=== PATIENT | female | born 1990 | race African-American/Black ===

== ENCOUNTER 2020-01-29 10:24 | Emergency (ER) | payer SELFPAY ==
[~2020-01-29] VITALS: Ht 162.6 cm; Wt 95.0 kg
[2020-01-29 11:03] LABS: U PREG PATIENT NEGATIVE (NEG)
[2020-01-29 11:11] LABS: BILIRUBIN,URINE NEGATIVE (NEG); CLARITY,URINE HAZY; COLOR,URINE YELLOW
[2020-01-29 11:12] LABS: BACTERIA,URINE MANY /HPF (0-FEW); NITRITE,URINE NEGATIVE (NEG); PROTEIN,URINE 30 mg/dL (NEG-TRACE); SQUAMOUS EPITHELIAL CELL,UR MOD /LPF; UROBILINOGEN,URINE 0.2 mg/dL (0.2 mg/dL)
[2020-01-29] MEDS ORDERED: PHENAZOPYRIDINE 200 MG TABLET. PO ONE (11:15)
[2020-01-29] MEDS ORDERED: cefTRIAXone IM 250 MG VIAL IM ONE (11:30)
[2020-01-29] MEDS ORDERED: AZIT500T PO (11:31)
[2020-01-29] MEDS ORDERED: METR500T PO (11:31)
[2020-01-29 11:51] VITALS: BP 124/87
--- NOTE | 2020-01-29 12:16 | PHYS DOC ---
Past Medical History Past Medical History: Asthma Past Surgical History: No Surgical History Smoking Status: Current Every Day Smoker Alcohol Use: Occasionally General Adult EDM: Chief Complaint: VAGINAL PROBLEM HPI: HPI: 29-year-old female presents with a chief complaint of dysuria urinary urgency and vaginal discharge. Patient states symptoms have been ongoing x2 days. Patient admits to having unprotected sex on Monday. Patient states she has previously had trichomonas. Patient states she has pain at the end of urination. Review of Systems: Review of Systems: Constitutional: Denies fever or chills. [] Eyes: Denies change in visual acuity. [] HENT: Denies nasal congestion or sore throat. [] Respiratory: Denies cough or shortness of breath. [] Cardiovascular: Denies chest pain or edema. [] GI: Denies abdominal pain, nausea, vomiting, bloody stools or diarrhea. [] : Positive dysuria positive vaginal discharge no vaginal bleed Musculoskeletal: Denies back pain or joint pain. [] Integument: Denies rash. [] Neurologic: Denies headache, focal weakness or sensory changes. [] Endocrine: Denies polyuria or polydipsia. [] Lymphatic: Denies swollen glands. [] Psychiatric: Denies depression or anxiety. [] Heart Score: Risk Factors: Risk Factors: DM, Current or recent (<one month) smoker, HTN, HLP, family history of CAD, obesity. Risk Scores: Score 0 - 3: 2.5% MACE over next 6 weeks - Discharge Home Score 4 - 6: 20.3% MACE over next 6 weeks - Admit for Clinical Observation Score 7 - 10: 72.7% MACE over next 6 weeks - Early Invasive Strategies Current Medications: Current Medications Medications (Trade) Dose Ordered Sig/Cris Start Time Stop Time Status Last Admin Dose Admin Ceftriaxone Sodium (Rocephin Im) 250 mg 1X ONCE 01/29/20 11:30 01/29/20 11:31 DC 01/29/20 11:36 250 MG Phenazopyridine HCl (Pyridium) 200 mg 1X ONCE 01/29/20 11:15 01/29/20 11:25 DC 01/29/20 11:28 200 MG Allergies: Allergies: Allergies Coded Allergies Type Severity Reaction Last Updated Verified cat dander Allergy Unknown 01/29/20 Yes Physical Exam: PE: Constitutional: Well developed, well nourished, no acute distress, non-toxic appearance. [] HENT: Normocephalic, atraumatic, bilateral external ears normal, oropharynx moist, no oral exudates, nose normal. [] Eyes: PERRLA, EOMI, conjunctiva normal, no discharge. [] Neck: Normal range of motion, no tenderness, supple, no stridor. [] Cardiovascular:Heart rate regular rhythm, no murmur [] Lungs & Thorax: Bilateral breath sounds clear to auscultation [] Abdomen: Bowel sounds normal, soft, no tenderness, no masses, no pulsatile masses. [] Skin: Warm, dry, no erythema, no rash. [] Back: No tenderness, no CVA tenderness. [] Extremities: No tenderness, no cyanosis, no clubbing, ROM intact, no edema. [] Neurologic: Alert and oriented X 3, normal motor function, normal sensory function, no focal deficits noted. [] Psychologic: Affect normal, judgement normal, mood normal. [] Current Patient Data: Labs: Laboratory Tests Test 01/29/20 10:37 Urine Collection Type Unknown Urine Color Yellow Urine Clarity Hazy Urine pH 6.0 (<5.0-8.0) Urine Specific [place] 1.025 (1.000-1.030) Urine Protein 30 mg/dL (NEG-TRACE) Urine Glucose (UA) Negative mg/dL (NEG) Urine Ketones (Stick) Negative mg/dL (NEG) Urine Blood Trace (NEG) Urine Nitrite Negative (NEG) Urine Bilirubin Negative (NEG) Urine Urobilinogen Dipstick 0.2 mg/dL (0.2 mg/dL) Urine Leukocyte Esterase Trace (NEG) Urine RBC 6-10 /HPF (0-2) Urine WBC 11-20 /HPF (0-4) Urine Squamous Epithelial Cells Mod /LPF Urine Bacteria Many /HPF (0-FEW) Urine Test Negative (NEG) Vital Signs: Vital Signs Date Time Temp Pulse Resp B/P (MAP) Pulse Ox O2 Delivery O2 Flow Rate FiO2 01/29/20 11:51 88 20 124/87 (99) 99 Room Air 01/29/20 10:48 98.4 98.4 EKG: EKG: [] Radiology/Procedures: Radiology/Procedures: [] Course & Med Decision Making: Course & Med Decision Making Pertinent Labs and Imaging studies reviewed. (See chart for details) [] Patient was evaluated for chief complaint. Work-up consisted of urinary analysis I did discussed a pelvic exam to obtain swabs to check for STDs versus a urine gonorrhea chlamydia test. Patient agreed with urinary test. Patient's urine analysis positive for leukocyte esterases. Patient was treated with Rocephin 250 mg IM and Pyridium. Patient was discharged home with prescription for Flagyl and Zithromax. Dragon Disclaimer: Dragon Disclaimer: This electronic medical record was generated, in whole or in part, using a voice recognition dictation system. Departure Departure Impression: Primary Impression: Urinary tract infection Additional Impression: Vaginal discharge Disposition: HOME/RESIDENCE PRIOR TO ADM Condition: STABLE Patient Instructions: Urinary Tract Infection, Sexually Transmitted Disease, [id number] Scripts Azithromycin (ZITHROMAX) 500 Mg Tablet 2 TAB PO ONCE, #2 TAB Prov: KO SMALLS DO 01/29/20 Metronidazole (FLAGYL) 500 Mg Tablet 500 MG PO TID for 1 Day, #4 TAB Prov: KO SMALLS DO 01/29/20 KO SMALLS DO January 29, 2020 12:15
== END 2020-01-29 11:52 | disposition home or self-care (01) ==
LOC: ER 10:24
DX: N39.0 Urinary tract infection, site not specified (principal); N89.8 Other specified noninflammatory disorders of vagina; R30.0 Dysuria; J45.909 Unspecified asthma, uncomplicated; F17.200 Nicotine dependence, unspecified, uncomplicated; Z91.09 Other allergy status, other than to drugs and biological substances
CPT/HCPCS: 36415; 81001; 81025; 87086; 87491; 87591; 96372; 99283; J0696

== ENCOUNTER 2020-03-06 11:30 | Emergency (ER) | payer MEDICAID ==
[~2020-03-06] VITALS: Ht 162.6 cm; Wt 91.8 kg
[~2020-03-06 11:30] MED LIST: AZIT500T PO; METR500T PO
[2020-03-06 11:57] VITALS: BP 124/66
[2020-03-06] MEDS ORDERED: IV NORMAL SALINE 1000ML BAG 1,000 ML IV SCH (12:04)
[2020-03-06] MEDS ORDERED: cefTRIAXone IM 250 MG VIAL IM ONE (12:15)
[2020-03-06] MEDS ORDERED: ONDANSETRON PF 4 MG/2 ML VIAL. IVP ONE (12:15)
[2020-03-06] MEDS ORDERED: AZITHROMYCIN 250 MG TABLET. PO ONE (12:15)
[2020-03-06] MEDS ORDERED: fentaNYL PF VIAL 100 MCG/2 ML VIAL IVP ONE (12:15)
[2020-03-06 12:17] LABS: BILIRUBIN,URINE NEGATIVE (NEG); CLARITY,URINE TURBID; COLOR,URINE YELLOW; NITRITE,URINE NEGATIVE (NEG); PH,URINE 5.5 (<5.0-8.0); PROTEIN,URINE 30 mg/dL (NEG-TRACE)
[2020-03-06 12:26] LABS: AMPHETAMINE/METHAMPHETAMINE NEG (NEG); BACTERIA,URINE MANY /HPF (0-FEW); BARBITURATES NEG (NEG); BENZODIAZEPINES NEG (NEG); CANNABINOIDS POS (NEG); COCAINE NEG (NEG); METHADONE NEG (NEG); OPIATES NEG (NEG); PHENCYCLIDINE POS (NEG); SQUAMOUS EPITHELIAL CELL,UR FEW /LPF; WBC,URINE >40 /HPF (0-4)
[2020-03-06 12:49] LABS: BASO # 0.1 x10^3/uL (0.0-0.2); BASO % 1 % (0-3); EOS # 0.1 x10^3/uL (0.0-0.7); EOS % 1 % (0-3); HEMATOCRIT 39.7 % (36.0-47.0); HEMOGLOBIN 13.3 g/dL (12.0-15.5); LYMPH # 1.7 x10^3/uL (1.0-4.8); LYMPH % 12 % (24-48); MEAN CORPUSCULAR HEMOGLOBIN 31 pg (25-35); MEAN CORPUSCULAR HGB CONC 34 g/dL (31-37); MEAN CORPUSCULAR VOLUME 92 fL (79-100); MONO # 1.5 x10^3/uL (0.0-1.1); MONO % 11 % (0-9); NEUT # 10.3 x10^3/uL (1.8-7.7); NEUT % 75 % (31-73); PLATELET COUNT 214 x10^3/uL (140-400); RED BLOOD COUNT 4.33 x10^6/uL (3.50-5.40); WHITE BLOOD COUNT 13.7 x10^3/uL (4.0-11.0)
--- NOTE | 2020-03-06 12:53 | PHYS DOC ---
Past Medical History Past Medical History: Asthma Past Surgical History: No Surgical History Smoking Status: Current Every Day Smoker Alcohol Use: Occasionally General Adult EDM: Chief Complaint: PAIN ON URINATION HPI: HPI: Patient is a 29 year old female who presents with patient states yesterday began having fever, chills, nausea and vaginal discharge with an odor. She states she is also having frequency with urination and burning. She states she is having lower abdominal pain bilaterally. States about a month ago she did have gonorrhea and was treated. States that she would like to be tested and treated for chlamydia and gonorrhea today. She is educated that the results will come back in 48 hours and if it is positive. Review of Systems: Review of Systems: Constitutional: fever or chills. [] GI: abdominal pain, nausea, denies vomiting, bloody stools or diarrhea. [] : dysuria and vaginal discharge. [] \ Heart Score: Risk Factors: Risk Factors: DM, Current or recent (<one month) smoker, HTN, HLP, family history of CAD, obesity. Risk Scores: Score 0 - 3: 2.5% MACE over next 6 weeks - Discharge Home Score 4 - 6: 20.3% MACE over next 6 weeks - Admit for Clinical Observation Score 7 - 10: 72.7% MACE over next 6 weeks - Early Invasive Strategies Current Medications: Current Medications Medications (Trade) Dose Ordered Sig/Cris Start Time Stop Time Status Last Admin Dose Admin Azithromycin (Zithromax) 1,000 mg 1X ONCE 03/06/20 12:15 03/06/20 12:16 DC 03/06/20 12:28 1,000 MG Ceftriaxone Sodium (Rocephin Im) 250 mg 1X ONCE 03/06/20 12:15 03/06/20 12:16 DC 03/06/20 12:28 250 MG Fentanyl Citrate (Fentanyl 2ml Vial) 50 mcg 1X ONCE 03/06/20 12:15 03/06/20 12:16 DC Ondansetron HCl (Zofran) 4 mg 1X ONCE 03/06/20 12:15 03/06/20 12:16 DC Sodium Chloride 1,000 ml @ 1,000 mls/hr Q1H 03/06/20 12:04 03/06/20 13:03 Allergies: Allergies: Allergies Coded Allergies Type Severity Reaction Last Updated Verified cat dander Allergy Unknown 01/29/20 Yes Physical Exam: PE: Constitutional: Well developed, well nourished, no acute distress, non-toxic appearance. [] HENT: Normocephalic, atraumatic, bilateral external ears normal, oropharynx moist, no oral exudates, nose normal. [] Eyes: PERRLA, EOMI, conjunctiva normal, no discharge. [] Neck: Normal range of motion, no tenderness, supple, no stridor. [] Cardiovascular:Heart rate regular rhythm, no murmur [] Lungs & Thorax: Bilateral breath sounds clear to auscultation [] Abdomen: Bowel sounds normal, soft, bilateral lower tenderness, no masses, no pulsatile masses. [] Skin: Warm, dry, no erythema, no rash. [] Back: No tenderness, no CVA tenderness. [] Extremities: No tenderness, no cyanosis, no clubbing, ROM intact, no edema. [] Neurologic: Alert and oriented X 3, normal motor function, normal sensory function, no focal deficits noted. [] Psychologic: Affect normal, judgement normal, mood normal. [] Current Patient Data: Labs: Laboratory Tests Test 03/06/20 11:53 03/06/20 11:57 Urine Collection Type Unknown Urine Color Yellow Urine Clarity Turbid Urine pH 5.5 (<5.0-8.0) Urine Specific [place] 1.015 (1.000-1.030) Urine Protein 30 mg/dL (NEG-TRACE) Urine Glucose (UA) Negative mg/dL (NEG) Urine Ketones (Stick) Negative mg/dL (NEG) Urine Blood Small (NEG) Urine Nitrite Negative (NEG) Urine Bilirubin Negative (NEG) Urine Urobilinogen Dipstick 1.0 mg/dL (0.2 mg/dL) Urine Leukocyte Esterase Large (NEG) Urine RBC 1-2 /HPF (0-2) Urine WBC >40 /HPF (0-4) Urine Squamous Epithelial Cells Few /LPF Urine Bacteria Many /HPF (0-FEW) Urine Opiates Screen Neg (NEG) Urine Methadone Screen Neg (NEG) Urine Barbiturates Neg (NEG) Urine Phencyclidine Screen Pos (NEG) Urine Amphetamine/Methamphetamine Neg (NEG) Urine Benzodiazepines Screen Neg (NEG) Urine Cocaine Screen Neg (NEG) Urine Cannabinoids Screen Pos (NEG) Urine Ethyl Alcohol Neg (NEG) POC Urine HCG, Qualitative Hcg negative (Negative) Microbiology 03/06/20 Wet Prep - Final, Complete Vital Signs: Vital Signs Date Time Temp Pulse Resp B/P (MAP) Pulse Ox O2 Delivery O2 Flow Rate FiO2 03/06/20 11:57 98.3 101 18 124/66 (85) 98 Room Air 98.3 EKG: EKG: [] Radiology/Procedures: Radiology/Procedures: [] Impression: [facility] [address] [place] [address] IMAGING REPORT Signed PATIENT: MANJIT CORMIER ACCOUNT: [id number] : 1990 LOCATION: ER AGE: 29 SEX: F EXAM STATUS: REG ER ORD. PHYSICIAN: RAYMUNDO SLOAN APRN REASON: VAG DISCHARGE, PELVIC PAIN, POSSIBLE PID. PLEASE CHECK APPENDICTS PROCEDURE: PELVIS COMPLETE EXAM: Pelvic Ultrasound Complete INDICATION: Reason: VAG DISCHARGE, PELVIC PAIN, POSSIBLE PID. PLEASE CHECK APPENDICTS / Spl. Instructions: / History: Patient also admits to discomfort with urination. ? TECHNIQUE: Real-time ultrasound of the pelvis with permanent freeze-frame documentation. Transabdominal and endovaginal approaches were utilized. COMPARISON:?None. ? FINDINGS: ? UTERUS:?Uterus 9.3 x 4.5 x 4.4 cm.? Endometrial thickness 0.9 cm. No uterine or endometrial abnormality. ? RIGHT OVARY/ADNEXA: Right ovary 3.4 x 2.8 x 2.1 cm.? Unremarkable. Normal ovarian blood flow. LEFT OVARY/ADNEXA:?Left ovary 2.8 x 2.1 x 2.6 cm. ?Unremarkable. Normal ovarian blood flow. ? OTHER:?Small amount of pelvic free fluid is present. No adnexal mass. Sonographic survey of the right lower quadrant abdomen in search of the appendix revealed bowel gas artifact with appendix not well visualized. Urinary bladder is unremarkable. ? IMPRESSION: ? Small, physiologic volume of pelvic free fluid. Otherwise unremarkable transabdominal and endovaginal pelvic ultrasound. The appendix was not well seen so study is nondiagnostic for exclusion of appendicitis. Electronically signed by: Didier Gleason MD (03/06/2020 1:55 PM) [id number] DICTATED and SIGNED BY: DIDIER GLEASON MD DATE: 03/06/20 0023 Course & Med Decision Making: Course & Med Decision Making Pertinent Labs and Imaging studies reviewed. (See chart for details) Patient rates her pain a 8 out of 10. Alert and oriented. Speaks in full clear sentences. Ambulatory with a steady gait. Afebrile. Low mid abdomen is slightly tender. Pelvic Exam: Fire Fighters Dispatcher present Abdomen: Nontender External Genitalia: Normal Skin Speculum: Normal vaginal mucosa, white and odorous cervical discharge Bimanual: No adnexal masses or tenderness, yes CMT [] Dragon Disclaimer: Dragon Disclaimer: This electronic medical record was generated, in whole or in part, using a voice recognition dictation system. Departure Departure Impression: Primary Impression: Urinary tract infection Qualified Codes: N39.0 - Urinary tract infection, site not specified Additional Impressions: Trichomoniasis Pelvic pain Disposition: HOME, SELF-CARE Condition: STABLE Referrals: [facility] (PCP) Patient Instructions: Sexually Transmitted Disease, Trichomoniasis, Urinary Tract Infection Additional Instructions: Follow up with a automated manufacturing instructor if needed. Take all medication as prescribed and with food. Scripts Ibuprofen (IBUPROFEN) 600 Mg Tablet 600 MG PO PRN Q6HRS PRN for INFLAMMATION, #20 TAB Prov: RAYMUNDO SLOAN APRN 03/06/20 Ondansetron (ONDANSETRON ODT) 4 Mg Tab.rapdis 1 TAB PO PRN Q6-8HRS, #16 TAB Prov: RAYMUNDO SLOAN APRN 03/06/20 Cephalexin (KEFLEX) 500 Mg Capsule 1 CAP PO BID for 7 Days, #14 CAP 0 Refills Prov: RAYMUNDO SLOAN APRN 03/06/20 Doxycycline Hyclate (DOXYCYCLINE HYCLATE) 100 Mg Capsule 1 CAP PO BID, #20 CAP Prov: RAYMUNDO SLOAN APRN 03/06/20 Justicifation of Admission Dx: Justifications for Admission: Justification of Admission Dx: N/A RAYMUNDO SLOAN APRN Mar 06, 2020 12:52
[2020-03-06 12:56] LABS: CALCIUM 8.2 mg/dL (8.5-10.1); CREATININE 1.1 mg/dL (0.6-1.0); GFR 72.1; POTASSIUM 4.3 mmol/L (3.5-5.1)
[2020-03-06 13:02] LABS: ALBUMIN 3.1 g/dL (3.4-5.0); ALBUMIN/GLOBULIN RATIO 0.8 (1.0-1.7); TOTAL BILIRUBIN 0.8 mg/dL (0.2-1.0); TOTAL PROTEIN 7.2 g/dL (6.4-8.2)
[2020-03-06] MEDS ORDERED: metroNIDAZOLE 500 MG TABLET PO ONE (13:30)
[2020-03-06] MEDS ORDERED: ONDANSETRON ODT 4 MG TAB.RAPDIS. PO ONE (13:30)
[2020-03-06] MEDS ORDERED: DOXYCYCLINE HYCLATE 100 MG TABLET PO ONE (13:30)
--- NOTE | 2020-03-06 13:58 | RAD ---
EXAM: Pelvic Ultrasound Complete INDICATION: Reason: VAG DISCHARGE, PELVIC PAIN, POSSIBLE PID. PLEASE CHECK APPENDICTS / Spl. Instructions: / History: Patient also admits to discomfort with urination. ? TECHNIQUE: Real-time ultrasound of the pelvis with permanent freeze-frame documentation. Transabdominal and endovaginal approaches were utilized. COMPARISON:?None. ? FINDINGS: ? UTERUS:?Uterus 9.3 x 4.5 x 4.4 cm.? Endometrial thickness 0.9 cm. No uterine or endometrial abnormality. ? RIGHT OVARY/ADNEXA: Right ovary 3.4 x 2.8 x 2.1 cm.? Unremarkable. Normal ovarian blood flow. LEFT OVARY/ADNEXA:?Left ovary 2.8 x 2.1 x 2.6 cm. ?Unremarkable. Normal ovarian blood flow. ? OTHER:?Small amount of pelvic free fluid is present. No adnexal mass. Sonographic survey of the right lower quadrant abdomen in search of the appendix revealed bowel gas artifact with appendix not well visualized. Urinary bladder is unremarkable. ? IMPRESSION: ? Small, physiologic volume of pelvic free fluid. Otherwise unremarkable transabdominal and endovaginal pelvic ultrasound. The appendix was not well seen so study is nondiagnostic for exclusion of appendicitis. Electronically signed by: Guevara Gleason MD (03/06/2020 1:55 PM) [id number]
[2020-03-06] MEDS ORDERED: IBUP-1007 PO (14:04)
[2020-03-06] MEDS ORDERED: DOXY100C2 PO (14:04)
[2020-03-06] MEDS ORDERED: ONDA4TAB12 PO (14:04)
[2020-03-06] MEDS ORDERED: CEPH-264 PO (14:04)
== END 2020-03-06 14:14 | disposition home or self-care (01) ==
LOC: ER 11:30
DX: N39.0 Urinary tract infection, site not specified (principal); A59.01 Trichomonal vulvovaginitis; R50.9 Fever, unspecified; R10.30 Lower abdominal pain, unspecified; R10.2 Pelvic and perineal pain; J45.909 Unspecified asthma, uncomplicated; F17.200 Nicotine dependence, unspecified, uncomplicated; Z88.8 Allergy status to other drugs, medicaments and biological substances
CPT/HCPCS: 76856; 80053; 80307; 81001; 81025; 83690; 85025; 85610; 87086; 87491; 87591; 96372; 99284; J0696; Q0111

== ENCOUNTER 2020-08-15 16:22 | Emergency (ER) | payer MEDICAID ==
[~2020-08-15] VITALS: Ht 162.6 cm; Wt 105.0 kg
[~2020-08-15 16:22] MED LIST changes: +CEPH-264 PO; +DOXY100C2 PO; +IBUP-1007 PO; +ONDA4TAB12 PO
[2020-08-15 16:34] VITALS: BP 121/71
[2020-08-15] MEDS ORDERED: VENTOLIN HFA18 GM INH (17:25)
[2020-08-15] MEDS ORDERED: FLUT10.6 IH (17:25)
[2020-08-15] MEDS ORDERED: PRED20TA PO (17:25)
--- NOTE | 2020-08-15 17:26 | PHYS DOC ---
Past Medical History Past Medical History: Asthma Past Surgical History: No Surgical History Smoking Status: Current Every Day Smoker Alcohol Use: Rarely General Adult EDM: Chief Complaint: COUGH HPI: HPI: 29 yo AA F PMH asthma, presents to the ed with c/o dry cough, fever/chills (tmax 101.3 3 hrs lpta-took apap), body aches, lack of taste/smell, requesting a repeat covid test. Had a test performed 4-5 days ago at [facility], unsure of results. Has no pcp. Cannot recall last steroid use for asthma, no h/o intubations/hospitalizations for asthma. Feels as if her asthma is well controlled and has albuterol/does not need refills-does not feel as if her asthma is flaring up. Also smokes tobacco. Review of Systems: Review of Systems: Constitutional: Denies diaphoresis, Eyes: Denies change in visual acuity. [] HENT: Denies nasal congestion or sore throat. [] Respiratory: Denies hemoptysis or shortness of breath. [] Cardiovascular: Denies chest pain or edema. [] GI: Denies abdominal pain, nausea, vomiting, bloody stools or diarrhea. [] : Denies dysuria. [] Musculoskeletal: Denies back pain or joint pain. [] Integument: Denies rash. [] Neurologic: Denies headache, focal weakness or sensory changes. [] Endocrine: Denies polyuria or polydipsia. [] Lymphatic: Denies swollen glands. [] Psychiatric: Denies depression or anxiety. [] Heart Score: Risk Factors: Risk Factors: DM, Current or recent (<one month) smoker, HTN, HLP, family history of CAD, obesity. Risk Scores: Score 0 - 3: 2.5% MACE over next 6 weeks - Discharge Home Score 4 - 6: 20.3% MACE over next 6 weeks - Admit for Clinical Observation Score 7 - 10: 72.7% MACE over next 6 weeks - Early Invasive Strategies Allergies: Allergies: Allergies Coded Allergies Type Severity Reaction Last Updated Verified cat dander Allergy Unknown 01/29/20 Yes Physical Exam: PE: Constitutional: Well developed, well nourished, no acute distress, non-toxic appearance. HENT: Normocephalic, atraumatic, Eyes: EOMI, conjunctiva normal, no discharge. Neck: Normal range of motion, supple, Cardiovascular: S1/2 present, regular rhythm Lungs & Thorax: Speaking in full sentences, bilateral equal chest rise, no tachypnea or increased work of breathing Abdomen: soft, no tenderness, Skin: Warm, dry, no erythema, no rash. [] Back: No tenderness, no CVA tenderness. [] Extremities: No tenderness, no cyanosis, no edema Neurologic: Alert and oriented X 3, normal motor function, normal sensory function, no focal deficits noted. [] Psychologic: Affect normal, judgement normal, mood normal. [] Current Patient Data: Vital Signs: Vital Signs Date Time Temp Pulse Resp B/P (MAP) Pulse Ox O2 Delivery O2 Flow Rate FiO2 08/15/20 16:34 97.9 80 18 121/71 (88) 98 Room Air 97.9 EKG: EKG: [] Radiology/Procedures: Radiology/Procedures: IMAGING REPORT Signed PATIENT: JARROD CORMIERCOUNT: [id number] : 1990 LOCATION: ER AGE: 29 SEX: F EXAM STATUS: REG ER ORD. PHYSICIAN: MARITZA BURRELL DO REASON: cough PROCEDURE: CHEST AP ONLY CHEST AP ONLY Clinical indications: Cough. COMPARISON: None available. Findings: No acute lung infiltrate or pleural effusion or pulmonary edema or lung mass or pneumothorax is seen. The heart size, pulmonary vasculature, mediastinum and both nino are unremarkable. Impression: No acute radiographic abnormality is seen. Electronically signed by: Yomaira Ashley MD (08/15/2020 5:25 PM) [id number] DICTATED and SIGNED BY: YOMAIRA ASHLEY MD DATE: 08/15/20 [id number] 0 Course & Med Decision Making: Course & Med Decision Making Pertinent Labs and Imaging studies reviewed. (See chart for details) COVID-19 CRITERIA: The patient was evaluated during the global COVID-19 pandemic, and that diagnosis was suspected/considered upon their initial presentation. Their evaluation, treatment and testing was consistent with current guidelines for patients who present with complaints or symptoms that may be related to COVID-19. Encounter for Covid testing very well-appearing asthmatic. Patient ambulatory with no increased work of breathing or tachypnea or hypoxia. Strict ED return precautions were given for chest pain, dyspnea or increased work of breathing or strokelike symptoms. Encouraged urgent outpatient follow-up with PMD. Life- threatening processes were considered but are low suspicion at this time, given history and physical exam. Pt was educated on all prescription medications and adverse effects. All patient's questions were answered and pt was stable at time of discharge. Life/limb-threatening differential includes but is not limited to, foreign body, infection/sepsis, congestive heart failure or pulmonary edema, lung cancer intrathoracic mass, bronchoconstriction, asthma/COPD/lung disease exacerbation, pneumothorax or hemothorax, pulmonary emboli, autoimmune/neurologic disease or toxidrome. I spoken with the patient and her caregivers. I explained the patient's condition, diagnoses and treatment plan based on the information available to me at this time. I have answered the patient and her caregiver's questions and addressed any concerns. The patient and her caregivers have a good understanding of patient's diagnosis, condition and treatment plan as can be expected at this point. Vital signs have been stable. Patient's condition is stable and appropriate for discharge from the emergency department. Patient will pursue further outpatient evaluation with primary care physician or other designated or consulting physician as outlined in the discharge instructions. The patient and/or caregivers are agreeable to this plan of care and follow-up instructions have been explained in detail. The patient and/or caregivers have received these instructions in written form and have expressed an understanding of the discharge instructions. The patient and/or caregivers are aware that any significant change of condition or worsening of symptoms should prompt immediate return to this or the closest emergency department or call to 911. Sebastian Disclaimer: Sebastian Disclaimer: This electronic medical record was generated, in whole or in part, using a voice recognition dictation system. Departure Departure Impression: Primary Impression: Person under investigation for COVID-19 Additional Impression: Asthma Disposition: 01 DC HOME SELF CARE/HOMELESS Condition: STABLE Referrals: [facility] (PCP) Additional Instructions: Return to ED immediately if your oxygen level drops below 90% (purchase a pulse oximetry at a medical supply store), difficulties breathing including rapid breathing or increased work of breathing (skin sucking under ribs), chest pain or stroke-like symptoms. You have been tested for or diagnosed with COVID-19. It is an infection caused by a new type of coronavirus. COVID-19 will cause cold-like or mild flu symptoms in most. It can cause more severe symptoms like problems breathing in some. There is no treatment for COVID-19. The body will clear the infection over time. Self-care will help to ease discomfort. Steps to Take: Self-Care Rest as needed. Healthy habits may help you feel better. Steps include: Choose healthy foods including fruits and vegetables. Drink water throughout the day. Get plenty of sleep each night. If you smoke, try to quit. It may ease breathing. Avoid alcohol. Keep Others Healthy The virus can spread to others. Droplets are released every time you sneeze or cough. The droplets can get into the mouth, nose, or eyes of people near you and lead to infection. To lower the chances of spreading COVID-19 to others: Stay at home until your doctor has said it is safe to leave. If you tested positive this will mean staying isolated until both of the following are true: At least 7 days have passed since the start of illness. You are free of fever for at least 72 hours without the use of medicine. During this time: - Avoid public areas, events, or transportation. Do not return to work or school until your doctor has said it is safe to do so. - Call ahead if you need to go to a medical center. Let them know you may have COVID-19. It will help them guide you where to go. They may also ask you to wear a facemask when you come to the office. - If you call for emergency medical services, let them know you may have COVID- 19. While at home: - Try to avoid close contact with others. Stay about 6 feet away. - If possible, spend most of your time in a separate room from others. - Use a face mask if you will be in close contact with others such as sharing a room or vehicle. - Have someone wipe down common surfaces in the home. Use household metal weigher every day on areas like doorknobs, counters, or sinks. - Cough or sneeze into a tissue. Throw the tissue away right after use. If a tissue is not available, cough or sneeze into your elbow. - Wash your hands often. Wash them after sneezing or coughing. Use soap and water and wash for at least 20 seconds. Alcohol based hand spool cleaner hand can be used if soap and water is not available. - Do not prepare food for others. Avoid sharing personal items like forks, spoons, or toothbrushes. - Avoid close contact with pets while you are sick. There is no evidence of the virus passing to pets. This is a safety step until more is known about this virus. Isolation can be frustrating. Social interaction can help. Keep in touch with friends and family through phone and tech options. You can still interact with others in your home, just keep a safe distance of about 6 feet. Follow-up: Your doctors office will check in with you to see if there are any changes in your health. You may be asked to keep track of symptoms to share with them. They will also let you know when you are clear to be in public again. Problems to Look Out For: Contact your doctor if your recovery is not going as you expect. Get emergency care if you have problems such as: - Trouble breathing - Nonstop chest pain or pressure - Changes in awareness, confusion, or problems waking - Lips or face have bluish color - Worsening of symptoms If you think you have an emergency, call for emergency medical services right away. As taken from [facility] Fluticasone Propionate (FLOVENT 44MCG HFA) 10.6 Gm Aer.w.adap 2 PUFF IH BID for 30 Days, #1 INHALER 2 Refills Prov: MARITZA BURRELL DO 08/15/20 Prednisone (PREDNISONE) 20 Mg Tablet 2 TAB PO DAILY for 5 Days, #10 TAB Prov: MARITZA BURRELL DO 08/15/20 Albuterol Sulfate (VENTOLIN HFA INHALER) 18 Gm Hfa.aer.ad 2 PUFF INH QID for FOR ASTHMA, #1 INHALER 0 Refills Prov: MARITZA BURRELL DO 08/15/20 MARITZA BURRELL DO Aug 15, 2020 17:26
--- NOTE | 2020-08-18 09:40 | NUR ---
IP: Informed pt of negative COVID test. Pt verbalized understanding.
== END 2020-08-15 17:58 | disposition home or self-care (01) ==
LOC: ER 16:22
DX: R05 Cough (principal); Z20.828 Contact with and (suspected) exposure to other viral communicable diseases; J45.909 Unspecified asthma, uncomplicated; F17.200 Nicotine dependence, unspecified, uncomplicated; Z88.8 Allergy status to other drugs, medicaments and biological substances
CPT/HCPCS: 71045; 99284; C9803; U0003